=== PATIENT | male | born 1970 ===

== ENCOUNTER 2019-03-30 05:39 | Inpatient (IN) | payer SELFPAY ==
[2019-03-30] MEDS ORDERED: NORMAL SALINE IV ONE (09:08)
[2019-03-30] MEDS ORDERED: MORPHINE SULFATE 10 MG/ML INJ IV ONE ×2 (09:09→15:18)
[2019-03-30] MEDS ORDERED: ACETAMINOPHEN SOLN 325 MG/10.15 ML UDCUP PO ONE (09:09)
[2019-03-30] MEDS ORDERED: CLINDAMYCIN 600 MG/D5W RTU 600 MG/50 ML RTUPB IV ONE (09:10)
--- NOTE | 2019-03-30 09:11 | ER Document Report ---
ED Oral Problem - General Mode of Arrival: Ambulatory Information source: Patient TRAVEL OUTSIDE OF THE [place] IN LAST 30 DAYS: No - HPI Patient complains to provider of: Swelling of face, Swelling of jaw, Toothache Onset: Other - 4 days Quality of pain: Pressure, Sharp Pain Level: 4 Associated symptoms: Dental decay, Facial pain, Fever, Toothache <JESUS ADAM - Last Filed: 03/30/19 20:31> <YANNIPAULHOME - Last Filed: 03/30/19 21:53> - General Chief Complaint: Toothache Stated Complaint: JAW SWELLING Time Seen by Provider: 03/30/19 08:25 Notes: Patient presents complaining of dental pain for the past week. Patient states that he started to have facial swelling over the past 4 days. Patient with fever here today. Patient denies any nausea or vomiting. Patient denies any significant medical history. (JESUS ADAM) - Related Data Allergies/Adverse Reactions: shellfish derived Allergy (Verified 03/30/19 20:46) Past Medical History - General Information source: Patient - Social History Smoking Status: Current Every Day Smoker Frequency of alcohol use: Occasional Drug Abuse: None Occupation: [employer] Lives with: Family Family History: Reviewed & Not Pertinent Patient has suicidal ideation: No Patient has homicidal ideation: No - Medical History Medical History: Negative Past Surgical History: Reports: Hx Adenoidectomy, Hx Tonsillectomy <JESUS ADAM - Last Filed: 03/30/19 20:31> Review of Systems - Review of Systems Constitutional: Fever EENT: Difficulty swallowing, Mouth pain, Mouth swelling Cardiovascular: No symptoms reported Respiratory: No symptoms reported Gastrointestinal: No symptoms reported. denies: Nausea, Vomiting Genitourinary: No symptoms reported Male Genitourinary: No symptoms reported Musculoskeletal: No symptoms reported Skin: No symptoms reported Hematologic/Lymphatic: No symptoms reported Neurological/Psychological: No symptoms reported <JESUS ADAM - Last Filed: 03/30/19 20:31> Physical Exam - General General appearance: Appears well, Alert In distress: None - HEENT Head: Normocephalic, Atraumatic Eyes: Normal Conjunctiva: Normal Extraocular movements intact: Yes Pupils: PERRL Nasal: Normal Mouth/Lips: Normal Mucous membranes: Dry Teeth diagram: 1 - Dental decay, trismus, gingival induration Neck: Lymphadenopathy - Right submandibular - Respiratory Respiratory status: No respiratory distress Chest status: Nontender Breath sounds: Normal Chest palpation: Normal - Cardiovascular Rhythm: Tachycardia Heart sounds: S1 appreciated, S2 appreciated Murmur: No - Back Back: Normal, Nontender - Extremities General upper extremity: Normal inspection, Normal ROM General lower extremity: Normal inspection, Normal ROM - Neurological Neuro grossly intact: Yes Cognition: Normal Mina Coma Scale Eye Opening: Spontaneous Constantia Coma Scale Verbal: Oriented Mina Coma Scale Motor: Obeys Commands Mina Coma Scale Total: 15 - Psychological Associated symptoms: Normal affect, Normal mood - Skin Skin Temperature: Warm Skin Moisture: Dry Skin Color: Normal <JESUS ADAM - Last Filed: 03/30/19 20:31> - Vital signs Vitals: Temp Pulse Resp BP Pulse Ox 101 F H 125 H 18 151/100 H 98 03/30/19 05:44 03/30/19 05:44 03/30/19 05:44 03/30/19 05:44 03/30/19 05:44 Course - Laboratory Result Diagrams: 03/30/19 09:35 03/30/19 09:35 - Diagnostic Test Radiology reviewed: Reports reviewed - EKG Interpretation by Wy EKG shows normal: Sinus rhythm Rate: Tachycardia - Consults [place] Time consulted: 12:46 - Dr Ricketts in OR, awaiting return call <JESUS ADAM - Last Filed: 03/30/19 20:31> - Laboratory Result Diagrams: 03/30/19 09:35 03/30/19 09:35 <HOME MCFARLANE - Last Filed: 03/30/19 21:53> - Re-evaluation Re-evalutation: 03/30/19 12:[address] Peterson called requesting additional information regarding patient presentation given significant swelling noted on CT scan. States he cannot find any definite drainable abscess but patient has extensive inflammation to the right side of the neck 03/30/19 12:38 Reevaluated patient, patient feels as though facial swelling is starting to increase. Patient does complain of some difficulty swallowing. Patient with mild khadar appearance to lower anterior aspect of the neck and concern about developing ludwigs angina. Dr Davila to bedside for examination, advises consultation with ENT. 03/30/19 12:41 Call placed for consultation with ENT Dr. Ricketts. Spoke with his nurse as he is currently in surgery. Nurse states that she will relay the message that he can return the call. Dr. Ricketts expected to be in surgery about 1 hour. 03/30/19 13:30 Dr. Ricketts's nurse called requesting the Dr. Davila speak with him (Dr Ricketts) on speaker phone about the case. 03/30/19 13:45 Dr Rivera into room (associate of Dr Ricketts's) to examine pt. Dr Rivera feels that pt as a dental infection and needs oral surgeon to evaluate pt and extract his tooth. Does not feel that pt can be managed at this facility. Dr rivera did review pt's CT images, and was advised that no obvious abscess was identified. Dr Rivera feels pt needs to be managed by oral surgery at this time. 03/30/19 14:[address] Jerry's office. Dr. Jerry is an oral surgeon although is not technically on-call for this hospital. Dr. Jerry states that because patient is requiring admission and he is going out of town, he states that he would not be able to assist in the management of this patient at this time. 03/30/19 14:15 Call placed to [facility] transfer center for consultation with oral surgeon per dishing machine operatorCARMEN Dior. 03/30/19 14:[address] Garcia at [facility] regarding patient presentation, Dr. Garcia states that because patient requires transfer that we will have to call back through the transfer center and speak with the attending. Call then placed again to [facility] transfer center for consultation. 03/30/19 15:18 Patient feels as though he is able to open his mouth somewhat wider at this time. Patient continues with trismus although is able to open his mouth 1 cm at this time. Patient updated regarding plan of care 03/30/19 15:[address] Salinas who is on for OMFS at [facility] who states that she would like to accept patient ER to ER transfer at this time. Dr. Salinas does not agree to accept patient as a direct admit to the hospitalist services. Dr. Salinas advises transferring patient to another facility at this time as the [facility] ER is at capacity and is on diversion. 03/30/19 15:40 bus attendant advised the patient status and need for additional calls to other facilities to be placed for transfer. 03/30/19 16:02 Call placed to [facility], they do not currently have any oral surgeon or OMFS provider position classifier. 03/30/19 16:15 Call placed to [facility] for consultation with OMFS provider 03/30/19 16:24 Spoke with Chris Casiano NP who is position classifier for [facility] OMFS group. States that patient would not be appropriate for their services as they are position classifier for trauma patients but that patient would require consultation with their in-house dental provider. States that they are at capacity and therefore patient cannot be transferred for in-house dental co nsultation. Recommends transfer to another facility at this time unless airway becomes an issue and then if patient requires intubation may consider being able to reconsult with their group. 03/30/19 17:[address] Constantino at [facility] who states that if patient's airway becomes emergent and he requires emergent intubation then we can call back and he may be able to accept patient although [facility] is presently on diversion as well and he would have to get special permission to accept the patient. 03/30/19 17:32 Spoke with at length about plan of care for patient. Rn Manager was called to inquire if we have any additional oral surgeons on staff that have in- house privileges where patient to be admitted here. Dr. Mcfarlane also recommends consultation again with oral surgeon at [facility] to determine if patient could be managed inpatient here and then follow-up with an oral surgeon on outpatient basis or if patient would need to emergently have procedure to stabilize his condition. Patient actually reports improvement of his pain symptoms as well as ability to open his mouth. Patient now able to open mouth 1.5 cm. Patient able to manage his oral secretions, vital signs continue stable at this time. 03/30/19 18:23 Call placed to [facility] transfer center for consultation with Dr. Salinas for management questions at this time. [facility] ER does continue on diversion at this time. 03/30/19 18:43 Dr. Mcfarlane and myself consulted again with Dr. Salinas at [facility] who feels that patient sounds as though he has a condition that will require oral surgery although likely cannot have it emergently at this time due to the amount of trismus he has. Does recommend continuing IV antibiotics. Dr. Mcfarlane inquired whether or not transfer center would be able to place patient on a wait list under hospitalist services, as they are a facility that has a capability of managing patient's condition. Transfer center will call back for hospitalist consultation. 03/30/19 19:07 Dr Mcfarlane spoke with Dr. Hamm at [facility] who is a hospitalist. States that patient warrants ICU admission at their facility and that they have a closed ICU in which patient cannot be transferred directly to the ICU. Recommends consultation with [facility] through the main [facility] transfer center to see if they have available oral surgeons position classifier in room at those facilities. If there is no room at those facilities he advises admission at our facility in the ICU and they can arrange ICU to ICU transfer when beds become available. 03/30/19 19:14 Spoke with [facility] again and they checked they do not have oral surgery capability at [facility] or [facility] at this time. 03/30/19 19:56 Dr. Gunter our ICU core cutter has graciously agreed to accept patient for admission at this time. He states he will contact surgeon Dr. Mcfarlane to advise him of patient's admission status in the ICU at this time as there are concerns that patient may develop the need for an emergent airway although patient does not currently have an emergent airway need at this time. (JESUS ADAM) 03/30/19 21:38 I did see and examined this patient in conjunction with Jessika Adam, nurse practitioner. This patient has had symptoms for at least 4 days, swelling is been getting progressively worse, after receiving steroids and IV antibiotics the patient was able to open his mouth significantly more however he could not still obtain a full mouth opening. He is handling secretions well, there is no stridor. At this point I do feel definitive treatment will end up needing to be oral surgery however as discussed with Dr. Salinas the oral surgeon from [facility] this patient will need to have the trismus resolved significantly more before she could do surgery. Patient will need likely several days of IV antibiotics and steroids before he would be ready for surgery. We have tried to admit the patient to multiple hospitals but none of them have any bed availability. At this point Dr. Gunter has agreed to accept the patient to the intensive care unit here and continue to work on transfer for definitive care through oral surgery as the swelling goes down. (HOME MCFARLANE) - Vital Signs Vital signs: Temp Pulse Resp BP Pulse Ox 98.8 F 125 H 17 145/108 H 97 03/30/19 21:01 03/30/19 05:44 03/30/19 21:01 03/30/19 21:01 03/30/19 21:01 - Laboratory Laboratory results interpreted by me: 03/30/19 03/30/19 09:35 09:35 WBC 17.9 H Lymph % (Auto) 6.3 L Absolute Neuts (auto) 14.9 H Absolute Monos (auto) 1.8 H Seg Neutrophils % 83.0 H Total Bilirubin 2.1 H - EKG Interpretation by Me Additional EKG results interpreted by me: 03/30/19 19:[address] elevation, QTc 499 (JESUS ADAM) Discharge - Discharge Admitting Provider: Lyric (Pinking Sewing Machine Operator) <JESUS ADAM - Last Filed: 03/30/19 20:31> <HOME MCFARLANE - Last Filed: 03/30/19 21:53> - Discharge Clinical Impression: Odontogenic infection of jaw, Facial swelling Condition: Serious Disposition: ADMITTED INPATIENT
[2019-03-30 09:55] LABS: ABSOLUTE BASOPHILS # (AUTO) 0.1 10^3/uL (0.0-0.2); ABSOLUTE EOSINOPHILS # (AUTO) 0.1 10^3/uL (0.0-0.6); ABSOLUTE LYMPHOCYTES (AUTO) 1.1 10^3/uL (0.5-4.7); ABSOLUTE MONOCYTES (AUTO) 1.8 10^3/uL (0.1-1.4); ABSOLUTE NEUT (AUTO) 14.9 10^3/uL (1.7-8.2); BASOPHILS % (AUTO) 0.3 % (0-2); EOSINOPHILS % (AUTO) 0.3 % (0-6); HEMATOCRIT 46.4 % (37.9-51.0); HEMOGLOBIN 15.7 g/dL (13.5-17.0); LYMPHOCYTES % (AUTO) 6.3 % (13-45); MEAN CORPUSCULAR HEMOGLOBIN 30.3 pg (27.0-33.4); MEAN CORPUSCULAR HGB CONC 33.8 g/dL (32.0-36.0); MEAN CORPUSCULAR VOLUME 90 fl (80-97); MONOCYTES % (AUTO) 10.1 % (3-13); PLATELET COUNT 317 10^3/uL (150-450); RED BLOOD COUNT 5.17 10^6/uL (4.35-5.55); RED CELL DISTRIBUTION WIDTH 12.5 % (11.5-14.0); TOTAL CELLS COUNTED % (AUTO) 100 %; WHITE BLOOD COUNT 17.9 10^3/uL (4.0-10.5)
[2019-03-30 09:59] LABS: VENOUS BLOOD BASE EXCESS 4.4 mmol/L; VENOUS BLOOD HCO3 29.8 mmol/L (20-32); VENOUS BLOOD PCO2 46.7 mmHg (35-63); VENOUS BLOOD PH 7.42 (7.30-7.42)
[2019-03-30 10:05] LABS: INTERNATIONAL RATION (INR) 1.03; PROTHROMBIN TIME 13.5 SEC (11.4-15.4)
[2019-03-30 10:12] LABS: ALBUMIN 4.3 g/dL (3.5-5.0); ALKALINE PHOSPHATASE 70 U/L (38-126); ANION GAP 12 (5-19); ASPARTATE AMINO TRANSFERASE 18 U/L (17-59); BILIRUBIN,DIRECT 0.1 mg/dL (0.0-0.4); BILIRUBIN,TOTAL 2.1 mg/dL (0.2-1.3); BLOOD UREA NITROGEN 7 mg/dL (7-20); CALCIUM 9.4 mg/dL (8.4-10.2); CARBON DIOXIDE 25 mmol/L (22-30); CHLORIDE 102 mmol/L (98-107); GLUCOSE 109 mg/dL (75-110); TOTAL PROTEIN 7.6 g/dL (6.3-8.2)
--- NOTE | 2019-03-30 10:46 | RADIOLOGY REPORT (SQ) ---
EXAM DESCRIPTION: CHEST 2 VIEWS COMPLETED DATE/TIME: 03/30/2019 10:32 am REASON FOR STUDY: fever COMPARISON: None. EXAM PARAMETERS: NUMBER OF VIEWS: two views TECHNIQUE: PA and lateral views of the chest were obtained. RADIATION DOSE: NA LIMITATIONS: none FINDINGS: LUNGS AND PLEURA: No consolidation, pleural effusion or pneumothorax. MEDIASTINUM AND HILAR STRUCTURES: No mediastinal or hilar contour abnormality. HEART AND VASCULAR STRUCTURES: The cardiac silhouette and pulmonary vasculature are within normal woods its. BONES: No acute findings. HARDWARE: None in the chest. OTHER: No other finding. IMPRESSION: No acute cardiopulmonary process. TECHNICAL DOCUMENTATION: JOB ID: [id number] [employer] - [employer]- All Rights Reserved Reading location - IP/workstation name: [email or web address]
--- NOTE | 2019-03-30 11:45 | EKG REPORT ---
SEVERITY:- BORDERLINE ECG - SINUS TACHYCARDIA BORDERLINE PROLONGED QT INTERVAL : Confirmed by: Ester Gonzalez MD 30-Mar-2019 11:44:19
--- NOTE | 2019-03-30 12:24 | RADIOLOGY REPORT (SQ) ---
EXAM DESCRIPTION: CT FACIAL AREA WITH COMPLETED DATE/TIME: 03/30/2019 11:45 am REASON FOR STUDY: facial swelling, dental infection COMPARISON: None. TECHNIQUE: Post contrast images through the facial bones and orbits windowed for bone and soft tissu e. Additional coronal and sagittal reconstructed images reviewed. All images stored on PACS. All CT scanners at this facility use dose modulation, iterative reconstruction, and/or weight based d osing when appropriate to reduce radiation dose to as low as reasonably achievable (ALARA). [facility]: Dose Right [facility]: CareDose [facility]: Dose Right [facility]: Teradose 4D [facility]: eoSemi CONTRAST TYPE AND DOSE: Contrast/concentration: Isovue 350.00 mg/ml; Total Contrast Delivered: 69.0 ml; Total Saline Delivered: 44.0 ml RENAL FUNCTION: GFR > 60. RADIATION DOSE: CT Rad equipment meets quality standard of care and radiation dose reduction techniq ues were employed. CTDIvol: 8.2 mGy. DLP: 204 mGy-cm. . LIMITATIONS: None. FINDINGS: FACIAL BONES: No fracture. ORBITS: The orbits are intact. The globes, extraocular muscles, and optic nerve sheath complexes are symmetric. PARANASAL SINUSES: The paranasal sinuses and the mastoid air cells are clear. The nasal septum is mi dline. The ostiomeatal complexes are patent. SOFT TISSUES: Inflammation that involves the buccal, parotid, science faculty member sublingual, parapharyngeal, and mucosal pharyngeal space. The parotid and submandibular glands are enlarged and heterogeneous co mpared to the contralateral side. The platysma and overlying skin are thickened and there is trace a mount of retropharyngeal fluid. There is no discernible abscess. There are enlarged and enhancing right sided level Ia, Ib, IIa, IIb and III. INFERIOR BRAIN: No acute abnormality. OTHER: The vasculature is patent. There is a lucency around the root apex of the 1st left mandibular molar. IMPRESSION: Extensive inflammation on the right side of the neck that involves the buccal, parotid, science faculty member sublingual, parapharyngeal, and mucosal pharyngeal spaces with reactive ipsilateral adenop athy and no discernible abscess. COMMENT: This report was called to JESUS OHARA NP at12:18 on 03/30/2019. TECHNICAL DOCUMENTATION: JOB ID: [id number] Quality ID # [id number]: Final reports with documentation of one or more dose reduction techniques (e.g., Au tomated exposure control, adjustment of the mA and/or kV according to patient size, use of iterative reconstruction technique) 2010 [employer]- All Rights Reserved Reading location - IP/workstation name: [email or web address]
[2019-03-30] MEDS ORDERED: DEXAMETHASONE SOD PHOS INJ 10 MG/1 ML VIAL IV ONE (12:37)
[2019-03-30] MEDS ORDERED: NICOTINE 21 MG/24 HR PATCH.TD24 TD ONE (12:41)
[2019-03-30] MEDS ORDERED: CLINDAMYCIN 600 MG/D5W RTU 600 MG/50 ML RTUPB IV SCH (16:00)
--- NOTE | 2019-03-30 16:33 | PDOC CONSULTATION ---
Consultation Consult Date: 03/30/19 Provider Consulted: CARLOS MALDONADO History of Present Illness History of Present Illness: KRISTIN KENDRICK is a 49 year old male who was referred to the otolaryngology head and neck surgery service for evaluation. The patient presents with a 6 to 7-day history of odontogenic pain along with face/neck swelling. Patient admits to odontogenic pain involving the right mandibular molar starting 6 to 7 days ago. He also admits to a decrease mouth opening. Patient presented to the emergency department where a CT scan was ordered which showed a right sided neck inflammation involving the parapharyngeal, submandibular and buccal spaces. An abscess is not identified. Patient states he has no problem breathing. He does admit to dysphagia. Past Medical History Medical History: None Cardiac Medical History: Reports: None Pulmonary Medical History: Reports: None Social History Smoking Status: Current Every Day Smoker Family History Family History: Reviewed & Not Pertinent Parental Family History Reviewed: Yes Children Family History Reviewed: Yes Sibling(s) Family History Reviewed.: Yes Medication/Allergy Home Medications: Cephalexin Monohydrate [Keflex 500 mg Capsule] 500 mg PO BID #14 capsule 04/18/14 Ibuprofen 800 mg PO Q8HP PRN #30 tablet 04/18/14 Allergies/Adverse Reactions: No Known Allergies Allergy (Verified 04/18/14 15:53) Review of Systems Eyes: ABSENT: visual disturbances Ears: ABSENT: hearing changes Cardiovascular: ABSENT: as per HPI, chest pain, dyspnea on exertion, edema, orthropnea, palpitations, other Gastrointestinal: ABSENT: as per HPI, abdominal pain, bloating, coffee ground emesis, constipation, diarrhea, dysphagia, heartburn, hematemesis, hematochezia, melena, nausea, vomiting, other Genitourinary: ABSENT: as per HPI, difficulty urinating, dysuria, hematuria, nocturia, other Musculoskeletal: ABSENT: as per HPI, back pain, deformity, joint swelling, muscle weakness, other Integumentary: ABSENT: as per HPI, diaphoresis, erythema, lesions, pruritus, rash, wounds, other Neurological: ABSENT: as per HPI, abnormal gait, abnormal movements, abnormal speech, confusion, convulsions, dizziness, focal weakness, frequent falls, lack of coordination, memory loss, numbness, paresthesias, restless legs, syncope, tingling, tremor(s), vertigo, weakness, other Hematologic/Lymphatic: ABSENT: as per HPI, easy bleeding, easy bruising, lymphadenopathy, other Physical Exam Vital Signs: Temp Pulse Resp BP Pulse Ox 99.1 F 125 H 15 158/115 H 98 03/30/19 10:49 03/30/19 05:44 03/30/19 15:01 03/30/19 15:01 03/30/19 15:01 Intake & Output 03/29/19 03/30/19 03/31/19 06:59 06:59 06:59 Intake Total 2210 Balance 2210 Weight 71.9 kg General appearance: PRESENT: no acute distress, cooperative, well-developed, well-nourished Head exam: PRESENT: atraumatic, normocephalic Eye exam: PRESENT: conjunctiva pink, EOMI, PERRLA. ABSENT: scleral icterus Ear exam: PRESENT: normal external ear exam Teeth exam: PRESENT: dental caries - Dental caries as noted right mandibular molar. This is most likely the source of the odontogenic infection. Throat exam: PRESENT: other - There is trismus. Posterior pharynx is normal. No evidence of retropharyngeal swelling. Neck exam: PRESENT: other - Swelling noted right submandibular area and level 2/3 on the right. There is also swelling overlying the right masseter muscle. Respiratory exam: PRESENT: clear to auscultation tati. ABSENT: rales, rhonchi, wheezes Cardiovascular exam: PRESENT: RRR. ABSENT: diastolic murmur, rubs, systolic murmur Pulses: PRESENT: normal dorsalis pedis pul Extremities exam: PRESENT: full ROM. ABSENT: calf tenderness, clubbing, pedal edema Musculoskeletal exam: PRESENT: ambulatory, full ROM Neurological exam: PRESENT: alert, awake, oriented to person, oriented to place, oriented to time, oriented to situation, CN II-XII grossly intact. ABSENT: motor sensory deficit Skin exam: PRESENT: dry, intact, warm. ABSENT: cyanosis, rash Results Laboratory Results: 03/30/19 09:35 03/30/19 09:35 03/30/19 03/30/19 03/30/19 09:35 09:35 09:35 WBC 17.9 H RBC 5.17 Hgb 15.7 Hct 46.4 MCV 90 MCH 30.3 MCHC 33.8 RDW 12.5 Plt Count 317 Seg Neutrophils % 83.0 H VBG pH 7.42 VBG pCO2 46.7 VBG HCO3 29.8 VBG Base Excess 4.4 Sodium 138.8 Potassium 4.0 Chloride 102 Carbon Dioxide 25 Anion Gap 12 BUN 7 Creatinine 0.79 Est GFR ( Amer) > 60 Glucose 109 Calcium 9.4 Total Bilirubin 2.1 H AST 18 Alkaline Phosphatase 70 Total Protein 7.6 Albumin 4.3 Impressions: Chest X-Ray 03/30/19 09:08 IMPRESSION: No acute cardiopulmonary process. Facial Bones CT 03/30/19 10:24 IMPRESSION: Extensive inflammation on the right side of the neck that involves the buccal, parotid, aromatherapist sublingual, parapharyngeal, and mucosal pharyngeal spaces with reactive ipsilateral adenopathy and no discernible abscess. Assessment & Plan - Diagnosis (1) Neck abscess Is this a current diagnosis for this admission?: Yes Plan: 1. The diagnosis and treatment plan were discussed with the patient and the emergency room doctor, , who voiced understanding. 2. Recommend referral to an oral/maxillofacial surgeon for further evaluation and treatment of this odontogenic related neck abscess. 3. Both the patient and the emergency room doctor are in agreement with the above plan. (2) Dental caries Plan: See above plan. (3) Odontogenic infection of jaw Plan: See above plan.
[2019-03-30] MEDS: CLINDAMYCIN 600 MG/D5W RTU 600 MG/50 ML RTUPB IV SCH (21:11)
[2019-03-31] MEDS ORDERED: MORPHINE SULFATE 10 MG/ML INJ IV PRN (00:25)
[2019-03-31] MEDS ORDERED: DEXAMETHASONE SOD PHOS INJ 10 MG/1 ML VIAL IV ONE (00:30)
[2019-03-31] MEDS ORDERED: RINGERS SOLUTION,LACTATED 1,000 ML IV PRN (01:18)
--- NOTE | 2019-03-31 01:18 | CRITICAL CARE ADMISSION REPORT ---
<CROW VILLEGAS - Last Filed: 03/31/19 01:04> HPI Date:: 03/31/19 Time:: 12:55 Reason for ICU Reason:: Facial Swelling with possible Edmundo's Angina. HPI: 49-year-old gentleman with no significant past medical history. He has a 1 w [place] history of right lower odontogenic pain with associated swelling x4 days. Patient presented to the ED today with fever and worsening facial pain with mild difficulty breathing. CT scan was ordered showed right sided neck inflammation involving the parapharyngeal, submandibular and buccal spaces. An abscess is not identified. He was treated with steroids and antibiotics in the ED and his breathing improved. He was transferred to the intensive care unit at 12:30 AM and stated that his swelling was mildly worse again. No difficulty in breathing reported. At this time, the maximum distance between his upper and lower incisors is 1.5 cm. History obtained from:: Patient, chart review. - Diagnosis/Plan (1) Odontogenic infection of jaw Is this a current diagnosis for this admission?: Yes Plan: Patient continued on Decadron and clindamycin. No drainable abscess found on CT. plan will be to continually monitor patient's condition, work of breathing and ability to open his mouth comfortably. He has been kept n.p.o. except for small sips of water and has been started on LR at 100 mL/h. Given his high risk for acute phase of Edmundo's Angina, emergent airway management systems have been prepared. Video bronchoscope at bedside along with intubation equipment and tracheostomy kit. Surgery, anesthesiology, critical ca re and emergency physicians are all aware of patient's condition and are transportation equipment painter if needed. (2) Tobacco abuse Is this a current diagnosis for this admission?: Yes Plan: Greater than 10 minutes spent counseling patient regarding his tobacco abuse and dependence. Patient is interested in quitting. Further counseling will be required when acute conditions resolved. Past Medical History Cardiac Medical History: Reports: None Pulmonary Medical History: Reports: None EENT Medical History: Reports: None Neurological Medical History: Reports: None Psychiatric Medical History: Denies: Depression Traumatic Medical History: Reports: None Past Surgical History Past Surgical History: Reports: Tonsillectomy Social/Family History - Social History Lives with: Family Smoking Status: Current Every Day Smoker Cigarettes Packs Per Day: 0.5 Number of Years Smokin Last Time Smoked: 03/30/19 Frequency of Alcohol Use: Social Hx Recreational Drug Use: Yes - Years ago Drugs: Marijuana Hx Prescription Drug Abuse: No - Medication/Allergies Home Medications: No Home Medications 03/30/19 Allergies/Adverse Reactions: shellfish derived Allergy (Verified 03/30/19 20:46) Review of Systems Nose, Mouth, and Throat: PRESENT: as per HPI, mouth pain Respiratory: PRESENT: as per HPI. ABSENT: cough, dyspnea, sputum Gastrointestinal: ABSENT: abdominal pain, nausea - Mild dysphasia, vomiting Musculoskeletal: ABSENT: deformity, muscle weakness Hematologic/Lymphatic: PRESENT: lymphadenopathy - Right, submandibular lymphadenopathy. Physical Exam Vital Signs: Temp Pulse Resp BP Pulse Ox 98.1 F 125 H 20 143/100 H 98 03/30/19 23:01 03/30/19 05:44 03/30/19 23:01 03/30/19 23:01 03/30/19 23:01 Intake & Output 03/29/19 03/30/19 03/31/19 06:59 06:59 06:59 Intake Total 2310 Balance 2310 Weight 71.9 kg Weight/Height Weight 71.9 kg Height 5 ft 9 in Laboratory/Radiographs Laboratory Results: 03/30/19 09:35 03/30/19 09:35 03/30/19 03/30/19 03/30/19 09:35 09:35 09:35 WBC 17.9 H RBC 5.17 Hgb 15.7 Hct 46.4 MCV 90 MCH 30.3 MCHC 33.8 RDW 12.5 Plt Count 317 Seg Neutrophils % 83.0 H VBG pH 7.42 VBG pCO2 46.7 VBG HCO3 29.8 VBG Base Excess 4.4 Sodium 138.8 Potassium 4.0 Chloride 102 Carbon Dioxide 25 Anion Gap 12 BUN 7 Creatinine 0.79 Est GFR ( Amer) > 60 Glucose 109 Calcium 9.4 Total Bilirubin 2.1 H AST 18 Alkaline Phosphatase 70 Total Protein 7.6 Albumin 4.3 Impressions: Chest X-Ray 03/30/19 09:08 IMPRESSION: No acute cardiopulmonary process. Facial Bones CT 03/30/19 10:24 IMPRESSION: Extensive inflammation on the right side of the neck that involves the buccal, parotid, inventory associate and driver sublingual, parapharyngeal, and mucosal phar yngeal spaces with reactive ipsilateral adenopathy and no discernible abscess. Critical Time Critical Time (minutes): 75 -: The care of a critically ill patient is dynamic. This note represents a static moment in the admission process. orders and treatments may be given simultaneously and urgent, and time is not players club representative of the treatment process. This patient requires Critical Care secondary to life threatening organ or limb dysfunction. Without the need for Critical Care services, the patient is at risk for increased mortality and morbidity. <MARYAM CASON - Last Filed: 03/31/19 08:22> HPI - . Plan Summary: I personally saw and examined and evaluated the patient in the emergency room with ELVA Villegas. His oral aperture opening had actually improved compared to to the ED presentation earlier in the day. He did receive steroids and antibiotics. He did not have any airway compromise during our evaluation. His CT scan is impressive and the level and extent of tracheal involvement is impressive. He is at high risk for loss of airway should the swelling increase. He does disclose that the facial swelling worsened today. Given this risk factor and limited resources at night on telemetry we felt it was in this patient's best interest to bring him to the ICU where he could be under constant observation. We notified surgery for a potential need for surgical airway access and have all equipment available in the room for both awake fiberoptic nasal intubation as well as a surgical intervention. We will continue steroids and antibiotics including anaerobic coverage. Will need vigilant reevaluation. Physical Exam Vital Signs: Temp Pulse Resp BP Pulse Ox 98.5 F 93 20 146/108 H 98 03/31/19 04:00 03/31/19 00:09 03/31/19 06:01 03/31/19 06:01 03/31/19 06:01 Intake & Output 03/30/19 03/31/19 04/01/19 06:59 06:59 06:59 Intake Total 2360 Output Total 0 Balance 2360 Weight 71.9 kg 72.1 kg Weight/Height Weight 72.1 kg Height 5 ft 9 in Laboratory/Radiographs Laboratory Results: 03/30/19 09:35 03/30/19 09:35 03/30/19 03/30/19 03/30/19 09:35 09:35 09:35 WBC 17.9 H RBC 5.17 Hgb 15.7 Hct 46.4 MCV 90 MCH 30.3 MCHC 33.8 RDW 12.5 Plt Count 317 Seg Neutrophils % 83.0 H VBG pH 7.42 VBG pCO2 46.7 VBG HCO3 29.8 VBG Base Excess 4.4 Sodium 138.8 Potassium 4.0 Chloride 102 Carbon Dioxide 25 Anion Gap 12 BUN 7 Creatinine 0.79 Est GFR ( Amer) > 60 Glucose 109 Calcium 9.4 Total Bilirubin 2.1 H AST 18 Alkaline Phosphatase 70 Total Protein 7.6 Albumin 4.3 Impressions: Chest X-Ray 03/30/19 09:08 IMPRESSION: No acute cardiopulmonary process. Facial Bones CT 03/30/19 10:24 IMPRESSION: Extensive inflammation on the right side of the neck that involves the buccal, parotid, inventory associate and driver sublingual, parapharyngeal, and mucosal pharyngeal spaces with reactive ipsilateral adenopathy and no discernible abscess. Critical Time -: The care of a critically ill patient is dynamic. This note represents a static moment in the admission process. orders and treatments may be given simulataneously and urgentl, and time is not players club representative of the treatment process. This patient requires Critical Care secondary to life threating organ or limb dysfunction. Without the need for Critical Care services, the patient is at risk for increasid mortality and morbidity.
[2019-03-31] MEDS: CLINDAMYCIN 600 MG/D5W RTU 600 MG/50 ML RTUPB IV SCH ×4 (03:43→21:06)
--- NOTE | 2019-03-31 08:52 | PDOC CRITICAL CARE PROG REPORT ---
General Date:: 03/31/19 ICU Day:: 2 Hospital Day:: 2 Events in the past 12 to 24 Hours:: 03.31.19: Patient has had no difficulty swallowing today. He endorses that he would like some food however his oral aperture still is limited. He has remained hemodynamically non-labile. He does have some early erythema on his neck which was not seen yesterday. 03.30.19:49-year-old gentleman with no significant past medical history. He has a 1 week history of right lower odontogenic pain with associated swelling x4 days. Patient presented to the ED today with fever and worsening facial pain with mild difficulty breathing. CT scan was ordered showed right sided neck inflammation involving the parapharyngeal, submandibular and buccal spaces. An abscess is not identified. He was treated with steroids and antibiotics in the ED and his breathing improved. He was transferred to the intensive care unit at 12:30 AM and stated that his swelling was mildly worse again. No difficulty in breathing reported. At this time, the maximum distance between his upper and lower incisors is 1.5 cm. Review of systems relevant to events:: Patient has had no vomiting. No stridor or distress. Reason for ICU Addmission:: Facial Swelling with possible Edmundo's Angina. - Medications: Medications reviewed and adjusted accordingly: Yes Vasopressors:: None Sedation:: None Physical Exam Vital Signs: Temp Pulse Resp BP Pulse Ox 98.5 F 93 20 146/108 H 98 03/31/19 04:00 03/31/19 00:09 03/31/19 06:01 03/31/19 06:01 03/31/19 06:01 Intake & Output 03/30/19 03/31/19 04/01/19 06:59 06:59 06:59 Intake Total 2360 Output Total 0 Balance 2360 Weight 71.9 kg 72.1 kg Weight/Height Weight 72.1 kg Height 5 ft 9 in General appearance: PRESENT: no acute distress, cooperative, well-developed, well-nourished Exam: Nontoxic ill 49-year-old male no active distress awake alert oriented x3 Eye exam: PRESENT: conjunctiva pink, EOMI, PERRLA. ABSENT: nystagmus, scleral icterus Ear exam: PRESENT: normal external ear exam Mouth exam: PRESENT: moist, tongue midline, other - Oral aperture still at 1-1/2 fingerbreadths. Able to fully evaluate alveolar membrane on right. Stridor no erythema no tongue swelling Teeth exam: PRESENT: dental caries, poor dentation, other - Malodorous breath Throat exam: ABSENT: post pharyngeal erythema, tonsillar exudate Neck exam: PRESENT: other - Right internal jugular vein is nontender there is no swelling.. ABSENT: carotid bruit, JVD, lymphadenopathy, thyromegaly Adult Head Front/Back Image: 1 - Significant swelling has improved slightly. There is early development of erythema submentally. Palpable SCM tenderness has improved 2 - Mild warmth and erythema Respiratory exam: PRESENT: clear to auscultation tati, unlabored. ABSENT: accessory muscle use, rales, rhonchi, tachypnea, wheezes Cardiovascular exam: PRESENT: RRR, +S1, +S2. ABSENT: diastolic murmur, irregular rhythm, rubs, systolic murmur, tachycardia Pulses: PRESENT: normal carotid pulses, normal dorsalis pedis pul Vascular exam: PRESENT: normal capillary refill. ABSENT: pallor GI/Abdominal exam: PRESENT: normal bowel sounds, soft. ABSENT: distended, guarding, mass, organolmegaly, rebound, tenderness Rectal exam: PRESENT: deferred Extremities exam: ABSENT: pedal edema Musculoskeletal exam: PRESENT: ambulatory, full ROM, normal inspection. ABSENT: deformity, dislocation Neurological exam: PRESENT: alert, awake, oriented to person, oriented to place, oriented to time, oriented to situation, CN II-XII grossly intact, normal gait. ABSENT: motor sensory deficit Psychiatric exam: PRESENT: appropriate affect, normal mood. ABSENT: homicidal ideation, suicidal ideation Focused psych exam: ABSENT: pressured speech, psychomotor agitation, restlessness Skin exam: PRESENT: dry, erythema - Mild over anterior and right lateral neck. Minimal warmth, normal color, warm. ABSENT: cyanosis, jaundice, mottled, pallor, petechiae, rash, urticaria, vesicles Tubes/Lines: ABSENT: Endotracheal Tube, Chest Tube, Central Line, Arterial Tatiana ter, Dialysis catheter, Peg Tube, Nasogastic Tube, Other Laboratory/Radiographs Laboratory Results: 03/30/19 09:35 03/30/19 09:35 03/30/19 03/30/19 03/30/19 09:35 09:35 09:35 WBC 17.9 H RBC 5.17 Hgb 15.7 Hct 46.4 MCV 90 MCH 30.3 MCHC 33.8 RDW 12.5 Plt Count 317 Seg Neutrophils % 83.0 H VBG pH 7.42 VBG pCO2 46.7 VBG HCO3 29.8 VBG Base Excess 4.4 Sodium 138.8 Potassium 4.0 Chloride 102 Carbon Dioxide 25 Anion Gap 12 BUN 7 Creatinine 0.79 Est GFR ( Amer) > 60 Glucose 109 Calcium 9.4 Total Bilirubin 2.1 H AST 18 Alkaline Phosphatase 70 Total Protein 7.6 Albumin 4.3 Impressions: Chest X-Ray 03/30/19 09:08 IMPRESSION: No acute cardiopulmonary process. Facial Bones CT 03/30/19 10:24 IMPRESSION: Extensive inflammation on the right side of the neck that involves the buccal, parotid, stocklayer sublingual, parapharyngeal, and mucosal pharyngeal spaces with reactive ipsilateral adenopathy and no discernible abscess. All labs, radiographs, diagnostic studies and EKGs were personally reviewed: Yes In addition, reports of radiographic and diagnostic studies were read: Yes Assessment and Plan Plan Summary: 03.31.19 Patient's swelling appears to have improved with current treatment paradigm. That being said he still has significant trismus. He does not have any observable compromise of his airway however the limited oral aperture opening is of concern. We have had significant difficulty in finding appropriate placement and surgical treatment for this patient given the maxillofacial surgery limitations. We are awaiting information from tertiary care centers that we have referred the patient to for acceptance for surgery. At this point his airway is stable however we have all equipment available should the situation worsen. Continue steroids and antibiotics. Keep n.p.o. for now. Critical Time Critical Time (minutes): 60 - Includes extensive coordination of care Level of Care: ICU Anticipated discharge: Tertiary Hospital Within: within 24 hours -: 1. The care of a critical patient is a dynamic process. This note is a quality audit representative synopsis but static in nature. The timeframe for treatments given in order is not necessary the actual time these treatments may have been done. 2. This patient requires critical care secondary to ongoing requirements for therapy not offered or safe outside the critical care environment. Transfer to a lower level of care with altered life or limb morbidity and mortality. 3. Multidisciplinary rounds completed. 4. ABCDE bundle addressed.
[2019-03-31] MEDS ORDERED: DEXTROSE 5%-NORMAL SALINE 1,000 ML IV PRN (08:53)
[2019-03-31] MEDS: HEPARIN SOD (PORCINE) 5,000 UNIT/ML 1 ML VIAL SUBCUT SCH ×3 (09:19→21:06)
[2019-03-31] MEDS ORDERED: DEXAMETHASONE SOD PHOS INJ 10 MG/1 ML VIAL IV SCH ×2 (10:00→22:00)
--- NOTE | 2019-03-31 15:04 | RADIOLOGY REPORT (SQ) ---
EXAM DESCRIPTION: VENOUS UNILATERAL UPPER COMPLETED DATE/TIME: 03/31/2019 2:41 pm REASON FOR STUDY: Edmundo's thrombophlebitis COMPARISON: None. TECHNIQUE: Dynamic and static ruiz scale and color images acquired of the right arm venous system. S elected spectral images acquired with additional compression and augmentation maneuvers. The contrala teral subclavian vein and internal jugular vein were also imaged. Images stored on PACS. LIMITATIONS: None. FINDINGS: INTERNAL JUGULAR VEIN: Normal phasicity, compression, augmentation. No visualized echogeni c material on ruiz scale. No defects on color images. Comparison opposite side normal. SUBCLAVIAN VEIN: Normal compression, augmentation. No visualized echogenic material on ruiz scale. No defects on color images. AXILLARY VEIN: Normal compression, augmentation. No visualized echogenic material on ruiz scale. No d efects on color images. BRACHIAL VEIN: Normal compression, augmentation. No visualized echogenic material on ruiz scale. No d efects on color images. BASILIC VEIN: Normal compression, augmentation. No visualized echogenic material on ruiz scale. No de fects on color images. CEPHALIC VEIN: Normal compression, augmentation. No visualized echogenic material on ruiz scale. No d efects on color images. OTHER: No other significant finding. CONTRALATERAL SUBCLAVIAN VEIN AND INTERNAL JUGULAR VEIN: Normal phasicity, compression and augmentation. No visualized echogenic material on ruiz scale. No de fects on color images. IMPRESSION: NO EVIDENCE DVT OR SVT IN THE RIGHT ARM. TECHNICAL DOCUMENTATION: JOB ID: [id number] [employer]- All Rights Reserved Reading location - IP/workstation name: [email or web address]
[2019-04-01] MEDS: CLINDAMYCIN 600 MG/D5W RTU 600 MG/50 ML RTUPB IV SCH ×2 (03:00→09:26)
[2019-04-01 04:20] LABS: HEMATOCRIT 43.4 % (37.9-51.0); HEMOGLOBIN 14.5 g/dL (13.5-17.0); MEAN CORPUSCULAR HEMOGLOBIN 30.2 pg (27.0-33.4); MEAN CORPUSCULAR HGB CONC 33.5 g/dL (32.0-36.0); MEAN CORPUSCULAR VOLUME 90 fl (80-97); PLATELET COUNT 366 10^3/uL (150-450); RED BLOOD COUNT 4.82 10^6/uL (4.35-5.55); RED CELL DISTRIBUTION WIDTH 12.4 % (11.5-14.0); WHITE BLOOD COUNT 21.3 10^3/uL (4.0-10.5)
[2019-04-01 04:32] LABS: INTERNATIONAL RATION (INR) 0.99; PROTHROMBIN TIME 13.1 SEC (11.4-15.4)
[2019-04-01 04:37] LABS: ANION GAP 8 (5-19); BLOOD UREA NITROGEN 13 mg/dL (7-20); C-REACTIVE PROTEIN 52.8 mg/L (<10.0); CALCIUM 9.5 mg/dL (8.4-10.2); CARBON DIOXIDE 25 mmol/L (22-30); CHLORIDE 106 mmol/L (98-107); GLUCOSE 119 mg/dL (75-110); POTASSIUM 4.2 mmol/L (3.6-5.0)
[2019-04-01 04:59] LABS: ABSOLUTE LYMPHOCYTES# (MANUAL) 0.4 10^3/uL (0.5-4.7); ABSOLUTE MONOCYTES # (MANUAL) 0.6 10^3/uL (0.1-1.4); BASOPHILS % (MANUAL) 0 % (0-2); EOSINOPHILS % (MANUAL) 0 % (0-6); LYMPHOCYTES % (MANUAL) 2 % (13-45); MONOCYTES % (MANUAL) 3 % (3-13); SEGMENTED NEUTROPHILS % (MAN) 95 % (42-78); TOTAL CELLS COUNTED 100
[2019-04-01 05:00] LABS: PLATELET COMMENT ADEQUATE
[2019-04-01] MEDS: HEPARIN SOD (PORCINE) 5,000 UNIT/ML 1 ML VIAL SUBCUT SCH ×3 (05:23→22:40)
[2019-04-01] MEDS: ACETAMINOPHEN 325 MG TABLET PO PRN (13:06)
[2019-04-01] MEDS: PENICILLIN POTASSIUM IV SCH ×2 (13:07→17:46)
[2019-04-01] MEDS: WATER IV SCH ×2 (13:07→17:46)
[2019-04-01] MEDS: DEXTROSE 5% IV SCH ×2 (13:07→17:46)
[2019-04-01] MEDS: KETOROLAC TROMETHAMINE INJ/PF 30 MG/1 ML SDV IV PRN ×2 (13:07→19:42)
--- NOTE | 2019-04-01 16:37 | RADIOLOGY REPORT (SQ) ---
EXAM DESCRIPTION: CT SOFT TISSUE NECK WITH COMPLETED DATE/TIME: 04/01/2019 1:39 pm REASON FOR STUDY: Soft tissue swelling COMPARISON: None. TECHNIQUE: Post IV contrasted scanning from skull base through lung apices with review of bone, soft tissue and lung windows. Reconstructed coronal and sagittal MPR images reviewed. All images stored on PACS. All CT scanners at this facility use dose modulation, iterative reconstruction, and/or weight based d osing when appropriate to reduce radiation dose to as low as reasonably achievable (ALARA). [facility]: Dose Right [facility]: CareDose [facility]: Dose Right [facility]: Teradose 4D [facility]: Ondango CONTRAST TYPE AND DOSE: contrast/concentration: Isovue 350.00 mg/ml; Total Contrast Delivered: 75.0 ml; Total Saline Delivered: 55.0 ml RENAL FUNCTION: Not recorded here. Refer to technologist's notes. RADIATION DOSE: . LIMITATIONS: None. FINDINGS: SKULL BASE: Intact. MAJOR SALIVARY GLANDS: No solid or cystic masses. No inflammatory changes. LYMPHADENOPATHY: Cervical adenopathy. MUCOSAL MASSES OR ASYMMETRY: No mucosal masses or asymmetry. LARYNX/CORDS: No abnormal findings. VASCULAR STRUCTURES: The major vessels are patent. LUNG APICES: Clear. BONES: Intact. THYROID: Normal size. No masses. PARANASAL SINUSES: Clear. OTHER: There is swelling in the oyster farmer space on the right. Ill-defined decreased attenuation evonne r the mandible. IMPRESSION: There is infection involving the oyster farmer space on the right with likely abscess adjac ent to the mandible. Cervical adenopathy. TECHNICAL DOCUMENTATION: JOB ID: [id number] Quality ID # [id number]: Final reports with documentation of one or more dose reduction techniques (e.g., Au tomated exposure control, adjustment of the mA and/or kV according to patient size, use of iterative reconstruction technique) 2010 [employer]- All Rights Reserved Reading location - IP/workstation name: [email or web address]
[2019-04-01] MEDS: METRONIDAZOLE 500 MG/NS RTU 500 MG/100 ML RTUPB IV SCH ×2 (17:47→22:40)
--- NOTE | 2019-04-01 18:37 | PDOC CRITICAL CARE PROG REPORT ---
General Date:: 04/01/19 ICU Day:: 3 Hospital Day:: 3 Resuscitation Status: Full Code Events in the past 12 to 24 Hours:: Patient continues to have improvement in swelling but has more pain today. Mouth aperature improved but less than yesterday. Able to tolerate a mechanical diet yesterday. Review of systems relevant to events:: Discussed the case and care with maxillofacial surgery at [facility]. And was to continue medical therapy with eventual discharge to see oral surgeon as an outpatient. He is remained afebrile. Notable increase in blood pressure may be consistent with undiagnosed essential hypertension Reason for ICU Addmission:: Facial Swelling with possible Edmundo's Angina. - Medications: Medications reviewed and adjusted accordingly: Yes Vasopressors:: None Sedation:: None Physical Exam Vital Signs: Temp Pulse Resp BP Pulse Ox 99 F 92 15 113/88 H 92 04/01/19 05:36 03/31/19 22:00 04/01/19 06:00 04/01/19 06:00 04/01/19 06:00 Intake & Output 03/31/19 04/01/19 04/02/19 06:59 06:59 06:59 Intake Total 2360 150 Output Total 0 1550 Balance 2360 -1400 Weight 72.1 kg 71.3 kg Weight/Height Weight 71.3 kg Height 5 ft 9 in General appearance: PRESENT: no acute distress, cooperative, well-developed, well-nourished Exam: Pleasant nontoxic 49-year-old male no active distress awake alert oriented x3 Head exam: PRESENT: atraumatic, normocephalic Eye exam: PRESENT: conjunctiva pink, EOMI, PERRLA. ABSENT: conjunctival injection, scleral icterus Ear exam: PRESENT: normal external ear exam Mouth exam: PRESENT: moist, neck supple, other - Swelling on right side of face is decreased. However opening of oral aperture is decreased to approximately 2- 2 and half centimeters. There is no discernible alveolar abscess no gingival erythema. Teeth exam: PRESENT: dental caries, other - No alveolar abscess seen. Odor improved Throat exam: ABSENT: post pharyngeal erythema, tonsillar erythema, tonsillar exudate, tonsillogmegaly Neck exam: PRESENT: lymphadenopathy, tenderness, other - No stridor. ABSENT: carotid bruit, JVD Respiratory exam: PRESENT: clear to auscultation tati. ABSENT: accessory muscle use, rales, rhonchi, wheezes Cardiovascular exam: PRESENT: RRR, +S1, +S2. ABSENT: diastolic murmur, rubs, systolic murmur Pulses: PRESENT: +1 pedal pulses bilateral GI/Abdominal exam: PRESENT: normal bowel sounds, soft. ABSENT: ascites, distended, guarding, mass, organolmegaly, rebound, tenderness Rectal exam: PRESENT: deferred Gentrourinary exam: ABSENT: indwelling catheter Extremities exam: ABSENT: pedal edema Musculoskeletal exam: PRESENT: ambulatory. ABSENT: deformity, dislocation Neurological exam: PRESENT: alert, awake, oriented to person, oriented to place, oriented to time, oriented to situation, CN II-XII grossly intact. ABSENT: motor sensory deficit Psychiatric exam: PRESENT: appropriate affect, normal mood Focused psych exam: ABSENT: pressured speech, psychomotor agitation, restlessness Skin exam: PRESENT: erythema - Erythema on the neck is much improved.. ABSENT: cyanosis Tubes/Lines: ABSENT: Endotracheal Tube, Chest Tube, Central Line, Arterial Catheter, Dialysis catheter, Peg Tube, Nasogastic Tube, Other Laboratory/Radiographs Laboratory Results: 04/01/19 03:59 04/01/19 03:59 03/30/19 04/01/19 04/01/19 09:35 03:59 03:59 WBC 21.3 H RBC 4.82 Hgb 14.5 Hct 43.4 MCV 90 MCH 30.2 MCHC 33.5 RDW 12.4 Plt Count 366 Seg Neutrophils % Not Reportable Sodium 139.0 Potassium 4.2 Chloride 106 Carbon Dioxide 25 Anion Gap 8 BUN 13 Creatinine 0.69 Est GFR ( Amer) > 60 Glucose 119 H Calcium 9.5 Phosphorus 4.0 Magnesium 2.5 H C-Reactive Protein 86.6 H 52.8 H Impressions: Chest X-Ray 03/30/19 09:08 IMPRESSION: No acute cardiopulmonary process. Facial Bones CT 03/30/19 10:24 IMPRESSION: Extensive inflammation on the right side of the neck that involves the buccal, parotid, powerplant operator sublingual, parapharyngeal, and mucosal ph aryngeal spaces with reactive ipsilateral adenopathy and no discernible abscess. Venous Doppler Study 03/31/19 00:00 IMPRESSION: NO EVIDENCE DVT OR SVT IN THE RIGHT ARM. Chest X-Ray 03/30/19 09:08 IMPRESSION: No acute cardiopulmonary process. Facial Bones CT 03/30/19 10:24 IMPRESSION: Extensive inflammation on the right side of the neck that involves the buccal, parotid, powerplant operator sublingual, parapharyngeal, and mucosal pharyngeal spaces with reactive ipsilateral adenopathy and no discernible absce ss. Venous Doppler Study 03/31/19 00:00 IMPRESSION: NO EVIDENCE DVT OR SVT IN THE RIGHT ARM. Soft Tissue Neck CT 04/01/19 00:00 IMPRESSION: There is infection involving the powerplant operator space on the right with likely abscess adjacent to the mandible. Cervical adenopathy. All labs, radiographs, diagnostic studies and EKGs were personally reviewed: Yes In addition, reports of radiographic and diagnostic studies were read: Yes Assessment and Plan - Diagnosis (1) Ludwigs angina Is this a current diagnosis for this admission?: Yes Plan: Swelling has improved however pain and decreased oral aperture is of concern. Will repeat CAT scan but include soft tissue of the neck to rule out abscess. Stop steroids (2) Odontalgia Is this a current diagnosis for this admission?: Yes Plan: Slightly worse today (3) Compromised airway Is this a current diagnosis for this admission?: Yes Plan: Improved. Less concern today. (4) Dental infection Is this a current diagnosis for this admission?: Yes Plan: Tooth #30, first lower right molar Plan Summary: 04.01.19: Patient will have repeat CT scan today to rule out abscess. If abscess is present he will need transfer for surgical treatment. We will continue antibiotics but discontinue steroids. Of concern today is that the patient was hungry and was able to tolerate a mechanical diet yesterday. He is less apt to eat today because of the pain. Will treat pain as well as rule out abscess. N.p.o. for now Blood pressure has improved we will continue to monitor before providing a diagnosis for hypertension. Addendum: Repeat CT shows abscess near mandible. Will discuss with [facility] and determine next step. Airway is patent this evening and patient is ambulatory. 03.31.19 Patient's swelling appears to have improved with current treatment paradigm. That being said he still has significant trismus. He does not have any observable compromise of his airway however the limited oral aperture opening is of concern. We have had significant difficulty in finding appropriate placement and surgical treatment for this patient given the maxillofacial surgery limitations. We are awaiting information from tertiary care centers that we have referred the patient to for acceptance for surgery. At this point his airway is stable however we have all equipment available should the situation worsen. Continue steroids and antibiotics. Keep n.p.o. for now. Critical Time Critical Time (minutes): 0 - 29591 Level of Care: MEDICAL Anticipated discharge: Tertiary Hospital Within: within 24 hours -: 1. The care of a critical patient is a dynamic process. This note is a retail account representative synopsis but static in nature. The timeframe for treatments given in order is not necessary the actual time these treatments may have been done. 2. This patient requires critical care secondary to ongoing requirements for therapy not offered or safe outside the critical care environment. Transfer to a lower level of care with altered life or limb morbidity and mortality. 3. Multidisciplinary rounds completed. 4. ABCDE bundle addressed.
[2019-04-02] MEDS: KETOROLAC TROMETHAMINE INJ/PF 30 MG/1 ML SDV IV PRN ×3 (01:57→13:34)
[2019-04-02] MEDS: METRONIDAZOLE 500 MG/NS RTU 500 MG/100 ML RTUPB IV SCH ×4 (02:01→20:49)
[2019-04-02 04:16] LABS: ABSOLUTE EOSINOPHILS # (AUTO) 0.1 10^3/uL (0.0-0.6); ABSOLUTE LYMPHOCYTES (AUTO) 1.4 10^3/uL (0.5-4.7); ABSOLUTE MONOCYTES (AUTO) 1.2 10^3/uL (0.1-1.4); ABSOLUTE NEUT (AUTO) 8.3 10^3/uL (1.7-8.2); BASOPHILS % (AUTO) 0.2 % (0-2); EOSINOPHILS % (AUTO) 0.5 % (0-6); HEMATOCRIT 41.9 % (37.9-51.0); HEMOGLOBIN 14.3 g/dL (13.5-17.0); LYMPHOCYTES % (AUTO) 12.6 % (13-45); MEAN CORPUSCULAR HEMOGLOBIN 30.5 pg (27.0-33.4); MEAN CORPUSCULAR HGB CONC 34.1 g/dL (32.0-36.0); MEAN CORPUSCULAR VOLUME 89 fl (80-97); MONOCYTES % (AUTO) 10.6 % (3-13); PLATELET COUNT 333 10^3/uL (150-450); RED CELL DISTRIBUTION WIDTH 12.7 % (11.5-14.0); SEGMENTED NEUTROPHILS % (AUTO) 76.1 % (42-78); TOTAL CELLS COUNTED % (AUTO) 100 %; WHITE BLOOD COUNT 10.9 10^3/uL (4.0-10.5)
[2019-04-02 04:36] LABS: ANION GAP 9 (5-19); BLOOD UREA NITROGEN 18 mg/dL (7-20); CALCIUM 8.5 mg/dL (8.4-10.2); CARBON DIOXIDE 26 mmol/L (22-30); CHLORIDE 104 mmol/L (98-107); GLUCOSE 86 mg/dL (75-110); POTASSIUM 4.1 mmol/L (3.6-5.0)
[2019-04-02] MEDS: HEPARIN SOD (PORCINE) 5,000 UNIT/ML 1 ML VIAL SUBCUT SCH ×3 (05:34→22:05)
[2019-04-02] MEDS: WATER IV SCH ×5 (06:30→18:55)
[2019-04-02] MEDS: DEXTROSE 5% IV SCH ×5 (06:30→18:55)
[2019-04-02] MEDS: PENICILLIN POTASSIUM IV SCH ×5 (06:30→18:55)
[2019-04-02] MEDS: ACETAMINOPHEN 325 MG TABLET PO PRN (09:56)
[2019-04-02] MEDS: DEXAMETHASONE SOD PHOSPHATE INJ 4 MG/1 ML VIAL IV SCH ×3 (09:56→18:56)
--- NOTE | 2019-04-02 11:42 | PDOC CRITICAL CARE PROG REPORT ---
General Date:: 04/02/19 ICU Day:: 3 Hospital Day:: 3 Resuscitation Status: Full Code Events in the past 12 to 24 Hours:: Improved talking and mouth opening. Slightly increased pain though. Review of systems relevant to events:: ENT, Respiratory. Reason for ICU Addmission:: Facial Swelling with possible Edmundo's Angina. - Medications: Medications reviewed and adjusted accordingly: Yes Vasopressors:: None Sedation:: None Physical Exam Vital Signs: Temp Pulse Resp BP Pulse Ox 97.7 F 67 17 128/83 H 98 04/02/19 08:00 04/02/19 10:00 04/02/19 10:00 04/02/19 10:00 04/02/19 10:00 Intake & Output 04/01/19 04/02/19 04/03/19 06:59 06:59 06:59 Intake Total 200 1590 350 Output Total 1550 1720 600 Balance -1350 -130 -250 Weight 71.3 kg 72.6 kg Weight/Height Weight 72.6 kg Height 5 ft 9 in General appearance: PRESENT: no acute distress, well-developed, well-nourished Head exam: PRESENT: atraumatic, normocephalic Eye exam: PRESENT: conjunctiva pink, EOMI, PERRLA. ABSENT: scleral icterus Ear exam: PRESENT: normal external ear exam Mouth exam: PRESENT: moist, tongue midline, other - Mouth has reasonable opening. However still limited by pain and stiifness Teeth exam: PRESENT: dental caries Neck exam: PRESENT: meningismus, tenderness, other - Swelling in R submandibular region. Pain as well. Although not impressive and patient on a regular diet, the increased swelling is confirmed. ABSENT: carotid bruit, JVD, lymphadenopathy, thyromegaly Respiratory exam: PRESENT: clear to auscultation tati. ABSENT: rales, rhonchi, wheezes Cardiovascular exam: PRESENT: RRR. ABSENT: diastolic murmur, rubs, systolic murmur Vascular exam: PRESENT: normal capillary refill GI/Abdominal exam: PRESENT: normal bowel sounds, soft. ABSENT: distended, guarding, mass, organolmegaly, rebound, tenderness Rectal exam: PRESENT: deferred Extremities exam: PRESENT: full ROM. ABSENT: calf tenderness, clubbing, pedal edema Musculoskeletal exam: PRESENT: normal inspection Neurological exam: PRESENT: alert, awake, oriented to person, oriented to place, oriented to time, oriented to situation, CN II-XII grossly intact. ABSENT: motor sensory deficit Skin exam: PRESENT: dry, intact, warm. ABSENT: cyanosis, rash Laboratory/Radiographs Laboratory Results: 04/02/19 03:54 04/02/19 03:49 04/01/19 04/02/19 04/02/19 10:20 03:49 03:54 WBC 10.9 H RBC 4.70 Hgb 14.3 Hct 41.9 MCV 89 MCH 30.5 MCHC 34.1 RDW 12.7 Plt Count 333 Seg Neutrophils % 76.1 Sodium 139.1 Potassium 4.1 Chloride 104 Carbon Dioxide 26 Anion Gap 9 BUN 18 Creatinine 0.77 Est GFR ( Amer) > 60 Glucose 86 Calcium 8.5 Phosphorus 5.0 H Magnesium 2.2 C-Reactive Protein 44.7 H Impressions: Chest X-Ray 03/30/19 09:08 IMPRESSION: No acute cardiopulmonary process. Facial Bones CT 03/30/19 10:24 IMPRESSION: Extensive inflammation on the right side of the neck that involves the buccal, parotid, glove operator sublingual, parapharyngeal, and mucosal pharyngeal spaces with reactive ipsilateral adenopathy and no discernible abscess. Venous Doppler Study 03/31/19 00:00 IMPRESSION: NO EVIDENCE DVT OR SVT IN THE RIGHT ARM. Soft Tissue Neck CT 04/01/19 00:00 IMPRESSION: There is infection involving the glove operator space on the right with likely abscess adjacent to the mandible. Cervical adenopathy. All labs, radiographs, diagnostic studies and EKGs were personally reviewed: Yes In addition, reports of radiographic and diagnostic studies were read: Yes Assessment and Plan - Diagnosis (1) Compromised airway Is this a current diagnosis for this admission?: Yes Plan: At this point resolved (2) Dental caries Is this a current diagnosis for this admission?: Yes Plan: To see oral surgeon as out patient. Continue antibiotics for now. (3) Dental infection Is this a current diagnosis for this admission?: Yes Plan: Same (4) Ludwigs angina Is this a current diagnosis for this admission?: Yes Plan: This has improved dramatically. Continue antibiotics for now Plan Summary: Hope to downgrade Thursday if swelling and pin are improved Critical Time Critical Time (minutes): 35 Level of Care: ICU Anticipated discharge: Home Within: Other - Too soon to tell. -: 1. The care of a critical patient is a dynamic process. This note is a service support representative synopsis but static in nature. The timeframe for treatments given in order is not necessary the actual time these treatments may have been done. 2. This patient requires critical care secondary to ongoing requirements for therapy not offered or safe outside the critical care environment. Transfer to a lower level of care with altered life or limb morbidity and mortality. 3. Multidisciplinary rounds completed. 4. ABCDE bundle addressed.
[2019-04-03] MEDS: PENICILLIN POTASSIUM IV SCH ×5 (00:03→23:00)
[2019-04-03] MEDS: DEXAMETHASONE SOD PHOSPHATE INJ 4 MG/1 ML VIAL IV SCH ×5 (00:03→23:00)
[2019-04-03] MEDS: DEXTROSE 5% IV SCH ×5 (00:03→23:00)
[2019-04-03] MEDS: WATER IV SCH ×5 (00:03→23:00)
[2019-04-03] MEDS: KETOROLAC TROMETHAMINE INJ/PF 30 MG/1 ML SDV IV PRN ×2 (00:25→15:15)
[2019-04-03] MEDS: METRONIDAZOLE 500 MG/NS RTU 500 MG/100 ML RTUPB IV SCH ×4 (04:00→21:24)
[2019-04-03] MEDS: HEPARIN SOD (PORCINE) 5,000 UNIT/ML 1 ML VIAL SUBCUT SCH ×3 (05:04→21:28)
--- NOTE | 2019-04-03 09:31 | PDOC CRITICAL CARE PROG REPORT ---
General Date:: 04/03/19 ICU Day:: 4 Hospital Day:: 4 Resuscitation Status: Full Code Medical Power of Arts And Crafts Teacher: No Events in the past 12 to 24 Hours:: Opens mouth wider, voice stronger Review of systems relevant to events:: OMFS Reason for ICU Addmission:: Facial Swelling with possible Edmundo's Angina. - Medications: Medications reviewed and adjusted accordingly: Yes Vasopressors:: None Sedation:: None Physical Exam Vital Signs: Temp Pulse Resp BP Pulse Ox 97.6 F 77 12 154/108 H 99 04/03/19 08:00 04/03/19 08:00 04/03/19 08:00 04/03/19 08:00 04/03/19 08:00 Intake & Output 04/02/19 04/03/19 04/04/19 06:59 06:59 06:59 Intake Total 1590 750 375 Output Total 1720 3100 480 Balance -130 -2350 -105 Weight 72.6 kg 74.4 kg Weight/Height Weight 74.4 kg Height 5 ft 9 in General appearance: PRESENT: no acute distress, well-developed, well-nourished Head exam: PRESENT: atraumatic, normocephalic Eye exam: PRESENT: conjunctiva pink, EOMI, PERRLA. ABSENT: scleral icterus Ear exam: PRESENT: normal external ear exam Mouth exam: PRESENT: neck supple, tongue midline, other - Small are about the size of a marble begginning to coalesce into small abcess. No airway compromise. Opens mouth wider. Teeth exam: PRESENT: dental tenderness Neck exam: PRESENT: meningismus - Mild, tenderness Respiratory exam: PRESENT: clear to auscultation tati. ABSENT: rales, rhonchi, wheezes Cardiovascular exam: PRESENT: RRR. ABSENT: diastolic murmur, rubs, systolic murmur Vascular exam: PRESENT: normal capillary refill GI/Abdominal exam: PRESENT: normal bowel sounds, soft. ABSENT: distended, guarding, mass, organolmegaly, rebound, tenderness Rectal exam: PRESENT: deferred Extremities exam: PRESENT: full ROM. ABSENT: calf tenderness, clubbing, pedal edema Musculoskeletal exam: PRESENT: ambulatory, full ROM, normal inspection Neurological exam: PRESENT: alert, awake, oriented to person, oriented to place, oriented to time, oriented to situation, CN II-XII grossly intact. ABSENT: mot or sensory deficit Skin exam: PRESENT: dry, intact, warm. ABSENT: cyanosis, rash Laboratory/Radiographs Laboratory Results: 04/02/19 03:54 04/02/19 03:49 Impressions: Chest X-Ray 03/30/19 09:08 IMPRESSION: No acute cardiopulmonary process. Facial Bones CT 03/30/19 10:24 IMPRESSION: Extensive inflammation on the right side of the neck that involves the buccal, parotid, auditor supervisor sublingual, parapharyngeal, and mucosal pharyngeal spaces with reactive ipsilateral adenopathy and no discernible abscess. Venous Doppler Study 03/31/19 00:00 IMPRESSION: NO EVIDENCE DVT OR SVT IN THE RIGHT ARM. Soft Tissue Neck CT 04/01/19 00:00 IMPRESSION: There is infection involving the auditor supervisor space on the right with likely abscess adjacent to the mandible. Cervical adenopathy. All labs, radiographs, diagnostic studies and EKGs were personally reviewed: Yes In addition, reports of radiographic and diagnostic studies were read: Yes Assessment and Plan - Diagnosis (1) Compromised airway Is this a current diagnosis for this admission?: Yes Plan: Resolved (2) Dental caries Is this a current diagnosis for this admission?: Yes Plan: Chronic (3) Dental infection Is this a current diagnosis for this admission?: Yes Plan: Keep on antibiotics. Set up appointment to see oral surgeon as out patient. (4) Ludwigs angina Is this a current diagnosis for this admission?: Yes Plan: Resolved Plan Summary: OK to downgrade to medical floor. Discharge in 2-3 days with appointment as out patient for oral surgeon. Conitine antibiotics until then. Critical Time Critical Time (minutes): 35 Level of Care: MEDICAL Anticipated discharge: Home Within: within 72 hours -: 1. The care of a critical patient is a dynamic process. This note is a footwear sales representative synopsis but static in nature. The timeframe for treatments given in order is not necessary the actual time these treatments may have been done. 2. This patient requires critical care secondary to ongoing requirements for therapy not offered or safe outside the critical care environment. Transfer to a lower level of care with altered life or limb morbidity and mortality. 3. Multidisciplinary rounds completed. 4. ABCDE bundle addressed.
[2019-04-03] MEDS ORDERED: AMLODIPINE BESYLATE 10 MG TABLET PO ONE (22:00)
[2019-04-04] MEDS: METRONIDAZOLE 500 MG/NS RTU 500 MG/100 ML RTUPB IV SCH ×3 (03:59→15:34)
[2019-04-04] MEDS: KETOROLAC TROMETHAMINE INJ/PF 30 MG/1 ML SDV IV PRN ×3 (04:04→11:55)
[2019-04-04] MEDS: WATER IV SCH ×2 (05:01→11:59)
[2019-04-04] MEDS: PENICILLIN POTASSIUM IV SCH ×2 (05:01→11:59)
[2019-04-04] MEDS: DEXTROSE 5% IV SCH ×2 (05:01→11:59)
[2019-04-04] MEDS: DEXAMETHASONE SOD PHOSPHATE INJ 4 MG/1 ML VIAL IV SCH ×2 (05:01→11:59)
[2019-04-04] MEDS: HEPARIN SOD (PORCINE) 5,000 UNIT/ML 1 ML VIAL SUBCUT SCH ×2 (05:43→16:09)
[2019-04-04 12:49] VITALS: BP 145/89
--- NOTE | 2019-04-04 17:51 | PDOC DISCHARGE SUMMARY ---
Impression - Admit/DC Date/PCP Admission Date/Primary Care Provider: 03/30/19 20:27 Discharge Date: 04/04/19 - Discharge Diagnosis (1) Compromised airway Is this a current diagnosis for this admission?: Yes (2) Neck abscess Is this a current diagnosis for this admission?: Yes (3) Odontogenic infection of jaw Is this a current diagnosis for this admission?: Yes - Additional Information Resuscitation Status: Full Code Discharge Diet: Regular Discharge Activity: Activity As Tolerated Referrals: [facility] [Outside] MOO OTT MD [ACTIVE STAFF] - 04/06/19 8:15 am (Saturday April 06, 2019 at 0815) Prescriptions: Amox Tr/Potassium Clavulanate [Augmentin 875-125 mg Tablet] 1 tab PO BID #20 tablet Dexamethasone [Decadron 4 Mg Tablet] 4 mg PO BID #10 tablet Home Medications: Amox Tr/Potassium Clavulanate [Augmentin 875-125 mg Tablet] 1 tab PO BID #20 tablet 04/04/19 Dexamethasone [Decadron 4 Mg Tablet] 4 mg PO BID #10 tablet 04/04/19 History of Present Illiness History of Present Illness: KRISTIN KENDRICK is a 49 year old male with no significant past medical history. He has a 1 week history of right lower odontogenic pain with associated swelling x4 days. Patient presented to the ED today with fever and worsening facial pain with mild difficulty breathing. CT scan was ordered showed right sided neck inflammation involving the parapharyngeal, submandibular and buccal spaces. An abscess is not identified. He was treated with steroids and antibiotics in the ED and his breathing improved. He was transferred to the intensive care unit at 12:30 AM and stated that his swelling was mildly worse again. No difficulty in breathing reported. At this time, the maximum distance between his upper and lower incisors is 1.5 cm. Hospital Course Hospital Course: Fortunately he never had any worsening airway compromise, but was monitored in the ICU until he ensured stability. He was kept on penicillin and Flagyl along with some Decadron. He had improvement of his swelling with this. Repeat CT showed what looked like some early abscess formation adjacent to the mandible on the right. He was breathing, eating, and drinking without difficulty. I spoke with Dr. Moo Ott, an oral surgeon in [facility], who recommended discharging him on Augmentin and oral Decadron, and have the patient come to see him 2 days hence at 0815. The patient's labs and examination were reassuring and he was discharged in good condition. Physical Exam Vital Signs: Temp Pulse Resp BP Pulse Ox 98.4 F 72 16 145/89 H 100 04/04/19 15:40 04/04/19 15:40 04/04/19 15:40 04/04/19 15:40 04/04/19 15:40 Intake & Output 04/03/19 04/04/19 04/05/19 06:59 06:59 06:59 Intake Total 750 1535 200 Output Total 3100 1180 Balance -2350 355 200 Weight 74.4 kg 74.2 kg General appearance: PRESENT: no acute distress, cooperative, disheveled Neck exam: PRESENT: other - He had some subtle swelling near his right mandible, his right submandibular space, and a trace amount on the right side of his neck Respiratory exam: PRESENT: clear to auscultation tati, symmetrical, unlabored. ABSENT: accessory muscle use, chest wall tenderness, crackles, prolonged expiratory phas, rhonchi, stridor, tachypnea, wheezes Cardiovascular exam: PRESENT: RRR, +S1, +S2 Pulses: PRESENT: normal carotid pulses Vascular exam: PRESENT: normal capillary refill GI/Abdominal exam: PRESENT: normal bowel sounds, soft. ABSENT: distended, guarding, rebound, tenderness Extremities exam: ABSENT: clubbing, pedal edema Musculoskeletal exam: PRESENT: normal inspection. ABSENT: deformity Neurological exam: PRESENT: alert, awake, oriented to person, oriented to place, oriented to situation Psychiatric exam: PRESENT: appropriate affect, normal mood Skin exam: PRESENT: dry, warm Results Laboratory Results: WBC 10.9 10^3/uL (4.0-10.5) H 04/02/19 03:54 RBC 4.70 10^6/uL (4.35-5.55) 04/02/19 03:54 Hgb 14.3 g/dL (13.5-17.0) 04/02/19 03:54 Hct 41.9 % (37.9-51.0) 04/02/19 03:54 MCV 89 fl (80-97) 04/02/19 03:54 MCH 30.5 pg (27.0-33.4) 04/02/19 03:54 MCHC 34.1 g/dL (32.0-36.0) 04/02/19 03:54 RDW 12.7 % (11.5-14.0) 04/02/19 03:54 Plt Count 333 10^3/uL (150-450) 04/02/19 03:54 Lymph % (Auto) 12.6 % (13-45) L 04/02/19 03:54 Hawkins % (Auto) 10.6 % (3-13) 04/02/19 03:54 Eos % (Auto) 0.5 % (0-6) 04/02/19 03:54 Baso % (Auto) 0.2 % (0-2) 04/02/19 03:54 Absolute Neuts (auto) 8.3 10^3/uL (1.7-8.2) H 04/02/19 03:54 Absolute Lymphs (auto) 1.4 10^3/uL (0.5-4.7) 04/02/19 03:54 Absolute Monos (auto) 1.2 10^3/uL (0.1-1.4) 04/02/19 03:54 Absolute Eos (auto) 0.1 10^3/uL (0.0-0.6) 04/02/19 03:54 Absolute Basos (auto) 0.0 10^3/uL (0.0-0.2) 04/02/19 03:54 Total Counted 100 04/01/19 03:59 Seg Neutrophils % 76.1 % (42-78) 04/02/19 03:54 Seg Neuts % (Manual) 95 % (42-78) H 04/01/19 03:59 Lymphocytes % (Manual) 2 % (13-45) L 04/01/19 03:59 Monocytes % (Manual) 3 % (3-13) 04/01/19 03:59 Eosinophils % (Manual) 0 % (0-6) 04/01/19 03:59 Basophils % (Manual) 0 % (0-2) 04/01/19 03:59 Abs Neuts (Manual) 20.2 10^3/uL (1.7-8.2) H 04/01/19 03:59 Abs Lymphs (Manual) 0.4 10^3/uL (0.5-4.7) L 04/01/19 03:59 Abs Monocytes (Manual) 0.6 10^3/uL (0.1-1.4) 04/01/19 03:59 Absolute Eos (Manual) 0.0 10^3/uL (0.0-0.6) 04/01/19 03:59 Abs Basophils (Manual) 0.0 10^3/uL (0.0-0.2) 04/01/19 03:59 Platelet Comment ADEQUATE 04/01/19 03:59 ESR 57 mm/hr (0-15) H 04/01/19 10:20 PT 13.1 SEC (11.4-15.4) 04/01/19 03:59 INR 0.99 04/01/19 03:59 APTT 28.0 SEC (23.5-35.8) 04/01/19 03:59 VBG pH 7.42 (7.30-7.42) 03/30/19 09:35 VBG pCO2 46.7 mmHg (35-63) 03/30/19 09:35 VBG HCO3 29.8 mmol/L (20-32) 03/30/19 09:35 VBG Base Excess 4.4 mmol/L 03/30/19 09:35 Sodium 139.1 mmol/L (137-145) 04/02/19 03:49 Potassium 4.1 mmol/L (3.6-5.0) 04/02/19 03:49 Chloride 104 mmol/L (98-107) 04/02/19 03:49 Carbon Dioxide 26 mmol/L (22-30) 04/02/19 03:49 Anion Gap 9 (5-19) 04/02/19 03:49 BUN 18 mg/dL (7-20) 04/02/19 03:49 Creatinine 0.77 mg/dL (0.52-1.25) 04/02/19 03:49 Est GFR ( Amer) > 60 (>60) 04/02/19 03:49 Est GFR (MDRD) Non-Af > 60 (>60) 04/02/19 03:49 Glucose 86 mg/dL (75-110) 04/02/19 03:49 Lactic Acid (Sepsis) 0.9 mmol/L (0.7-2.1) 03/30/19 09:35 Calcium 8.5 mg/dL (8.4-10.2) 04/02/19 03:49 Phosphorus 5.0 mg/dL (2.5-4.5) H 04/02/19 03:49 Magnesium 2.2 mg/dL (1.6-2.3) 04/02/19 03:49 Total Bilirubin 2.1 mg/dL (0.2-1.3) H 03/30/19 09:35 Direct Bilirubin 0.1 mg/dL (0.0-0.4) 03/30/19 09:35 Neonat Total Bilirubin Not Reportable 03/30/19 09:35 Neonat Direct Bilirubin Not Reportable 03/30/19 09:35 Neonat Indirect Bili Not Reportable 03/30/19 09:35 AST 18 U/L (17-59) 03/30/19 09:35 ALT 11 U/L (<50) 03/30/19 09:35 Alkaline Phosphatase 70 U/L (38-126) 03/30/19 09:35 C-Reactive Protein 44.7 mg/L (<10.0) H 04/01/19 10:20 Total Protein 7.6 g/dL (6.3-8.2) 03/30/19 09:35 Albumin 4.3 g/dL (3.5-5.0) 03/30/19 09:35 Impressions: Chest X-Ray 03/30/19 09:08 IMPRESSION: No acute cardiopulmonary process. Facial Bones CT 03/30/19 10:24 IMPRESSION: Extensive inflammation on the right side of the neck that involves the buccal, parotid, fibrous plasterer sublingual, parapharyngeal, and mucosal pharyngeal spaces with reactive ipsilateral adenopathy and no discernible abscess. Venous Doppler Study 03/31/19 00:00 IMPRESSION: NO EVIDENCE DVT OR SVT IN THE RIGHT ARM. Soft Tissue Neck CT 04/01/19 00:00 IMPRESSION: There is infection involving the fibrous plasterer space on the right with likely abscess adjacent to the mandible. Cervical adenopathy. Plan Time Spent: Greater than 30 Minutes Stroke Is this a Stroke Patient?: No Acute Heart Failure - Is this a Heart Failure Patient?: No
== END 2019-04-04 16:33 | disposition home or self-care (01) | DRG 158 ==
LOC: ER 05:39 → EH 20:27 → ICU 23:48 → 5 04-03 17:12
PROVIDERS: ADMIT Internal Medicine Critical Care Medicine; ATTEND Internal Medicine Critical Care Medicine
DX: K04.7 Periapical abscess without sinus (principal); K12.2 Cellulitis and abscess of mouth; R22.0 Localized swelling, mass and lump, head; R68.84 Jaw pain; K02.9 Dental caries, unspecified; R25.2 Cramp and spasm; R13.10 Dysphagia, unspecified; M27.2 Inflammatory conditions of jaws; F17.210 Nicotine dependence, cigarettes, uncomplicated
CPT/HCPCS: 36415; 70487; 70491; 71046; 80048; 80053; 82803; 83605; 83735; 84100; 85025; 85610; 85652; 85730; 86140; 87040; 93005; 93010; 93971; 96361; 96365; 96366; 96375; 96376; 99285; 99291; J1100; J1644; J1885; J2270; J2540; J3490; J7030; J7060; J7120